=== PATIENT | female | born 1965 | race Caucasian/White ===

== ENCOUNTER 2020-03-05 16:33 | Outpatient (REF) | payer OTHER, SELFPAY ==
--- NOTE | 2020-03-05 | MM_ITS ---
EXAMINATION: MM SCREENING DIGITAL BREAST TOMOSYNTHESIS, BILATERAL CLINICAL INFORMATION: Screening. Asymptomatic. The lifetime risk of breast cancer based on the Tyrer-Cuzick Model is 7.5%. COMPARISON: Mammography: 09/03/2018 and multiple previous mammograms dated back to 03/02/2013 TECHNIQUE: Digital breast tomosynthesis is performed in both the craniocaudal and mediolateral oblique views along with computer-aided detection (CAD). Synthesized 2D images are generated from the tomosynthesis. FINDINGS: The breasts are heterogeneously dense, which may obscure small masses (ACR BI-RADS breast composition Category c). Multiple scattered punctate and round calcifications in the right breast, greater in the upper outer quadrant do not appear to be significantly changed compared to previous studies. Several scattered punctate and round left breast calcifications also do not appear to be significantly changed compared to previous studies. No suspicious masses, calcifications, architectural distortion or other abnormalities are seen in either breast. MM/MM tomosynthesis screening BI IMPRESSION: No mammographic evidence of malignancy. ASSESSMENT: BI-RADS 2: Benign RECOMMENDATION: Routine annual mammography screening. This patient's information was entered into a reminder system with a target due date for their next mammogram.
== END 2020-03-05 16:34 | disposition home or self-care (01) ==
LOC: HO.MAMMO 16:33
PROVIDERS: PCP Internal Medicine; Visit Provider Internal Medicine
DX: Z12.31 Encounter for screening mammogram for malignant neoplasm of breast (principal)
CPT/HCPCS: 77063; 77067

== ENCOUNTER 2022-07-16 07:56 | Outpatient (REF) | payer OTHER, SELFPAY ==
--- NOTE | ~2022-07-16 | MM_ITS ---
EXAMINATION: MM SCREENING DIGITAL BREAST TOMOSYNTHESIS, BILATERAL CLINICAL INFORMATION: Screening. Asymptomatic. The lifetime risk of breast cancer based on the Tyrer-Cuzick Model is 8%. COMPARISON: Mammography: 03/05/2020, 09/03/2018, 08/18/2017 TECHNIQUE: Digital breast tomosynthesis is performed in both the craniocaudal and mediolateral oblique views along with computer-aided detection (CAD). Synthesized 2D images are generated from the tomosynthesis. FINDINGS: The breasts are heterogeneously dense, which may obscure small masses (ACR BI-RADS breast composition Category c). There are no significant masses, abnormal calcifications, or other abnormalities. Parenchymal pattern is similar to prior studies. There is no developing density or architectural abnormality. The axilla and skin contours are unremarkable. No significant changes. MM/MM tomosynthesis screening BI IMPRESSION: No mammographic evidence of malignancy. ASSESSMENT: BI-RADS 1: Negative RECOMMENDATION: Routine annual mammography screening. This patient's information was entered into a reminder system with a target due date for their next mammogram.
== END 2022-07-16 07:57 | disposition home or self-care (01) ==
LOC: HO.MAMMO 07:56
PROVIDERS: PCP Internal Medicine; Visit Provider Obstetrics & Gynecology
DX: Z12.31 Encounter for screening mammogram for malignant neoplasm of breast (principal)
CPT/HCPCS: 77063; 77067

== ENCOUNTER 2023-07-22 07:52 | Outpatient (REF) | payer OTHER, SELFPAY ==
--- NOTE | ~2023-07-22 | MM_ITS ---
EXAMINATION: MM SCREENING DIGITAL BREAST TOMOSYNTHESIS, BILATERAL CLINICAL INFORMATION: Screening. Asymptomatic. COMPARISON: Mammography: This study is compared with prior exams dating back to 2018. TECHNIQUE: Digital breast tomosynthesis is performed in both the craniocaudal and mediolateral oblique views along with computer-aided detection (CAD). Synthesized 2D images are generated from the tomosynthesis. FINDINGS: There are scattered areas of fibroglandular density (ACR BI-RADS breast composition Category b). There are no significant masses, abnormal calcifications, or other abnormalities. There are grouped calcifications which are benign and unchanged in the lower inner quadrant of the right breast. MM/MM tomosynthesis screening BI IMPRESSION: No mammographic evidence of malignancy. ASSESSMENT: BI-RADS BI-RADS 2 - Benign Findings RECOMMENDATION: Routine annual mammography screening. 1 year F/U This examination should not preclude the clinical evaluation of a suspicious palpable abnormality. This patient's information was entered into a reminder system with a target due date for their next mammogram.
== END 2023-07-22 07:53 | disposition home or self-care (01) ==
LOC: HO.MAMMO 07:52
PROVIDERS: PCP Internal Medicine; Visit Provider Internal Medicine
DX: Z12.31 Encounter for screening mammogram for malignant neoplasm of breast (principal)
CPT/HCPCS: 77063; 77067

== ENCOUNTER → 2023-07-22 08:00 | Outpatient (BNV) | payer OTHER, SELFPAY | PROVIDERS: PCP Internal Medicine; Visit Provider Radiology Diagnostic Radiology | DX: Z12.31 Encounter for screening mammogram for malignant neoplasm of breast (principal) | CPT/HCPCS: 77063; 77067 ==

== ENCOUNTER 2024-07-26 09:08 | Outpatient (REF) | payer OTHER, SELFPAY ==
--- OUTSIDE RECORDS SUMMARY | 2024-07-26 10:06 | XMS_ITS | Patient Health Record ---
Author Organization [facility] Address [address] [place] [address] Care Team Providers Care Slab Lifting Engineer Name Role Phone Sergio Reynoso MD Primary Care Provider SILVIO Hong Unavailable [phone] Allergies Allergen (clinical drug ingredient) Drug/Non Drug Allergy documented on EMR Reaction Allergy Type Onset Date Status acetaminophen / oxycodone Percocet Hallucinations Drug Allergy Active Reason For Referral No Information Medications Medication SIG (Take, Route, Frequency, Duration) Notes Start Date End Date Status Probiotic - as directed Orally Active Social History Tobacco Use: Social History Observation Description Date Details (start date - stop date) Never Smoker NA - NA Tobacco Use/Smoking Question Answer Notes Are you a nonsmoker Alcohol Screen (Audit-C) Question Answer Notes Did you have a drink contain ing alcohol in the past year? Yes How often did you have a dri nk containing alcohol in the past year? Monthly or less (1 point) How many drinks did you have on a typical day when you were drinking in the past year? 1 or 2 drinks (0 point) How often did you have 6 or more drinks on one occasion in the past year? Never (0 point) Points 1 Interpretation Negative Sexual History Question Answer Notes Had sex in the past 12 months (vaginal, oral, or anal)? Yes with Men only Prevention strategies discussed: Other Tobacco use other than smoking: Question Answer Notes Are you an other tobacco user? No Problems Problem Type SNOMED Code ICD Code Onset Dates Problem Status W/U Status Risk Notes Problem Autoimmune thyroiditis (58437398) Autoimmune thyroiditis (E06.3) Active confirmed Problem Refractory migraine without aura (269294942) Migraine without aura, intractable, without status migrainosus (G43.019) Active confirmed Problem Family history of malignant neoplasm of gastrointestinal tract (296389502) Family history of malignant neoplasm of digestive organs (Z80.0) Active confirmed Plan Of Treatment Pending Test Test Name Order Date THIN PREP,HPV,JESUS IF HPV+ (>29YR)(DIAG) 06/16/2018 MM Digital Screening Mammogram 3D 2019 MM Digital Screening Mammogram 3D 2020 Medical (General) History Medical History History ICD Code Migraine without aura, intractable, with out status migrainosus G43.019 Autoimmune thyroiditis E06.3 Arthritis in right knee Exocrine pancreatic insufficiency K86.81 Surgical History Surgery Date(Month/Year) Right Knee Surgery x 3 Arthroscopic 1984 ,1990,1996 Rectal Tumor Removed 09/2011 Colonoscopy 2018 Hospitalization History Reason Date(Month/Year) 3 Vaginal Deliveries 1990,1992,1995 See Surgical Hx
--- OUTSIDE RECORDS SUMMARY | 2024-07-26 10:06 | XMS_ITS | Patient Health Record ---
Author Organization [facility] Address [address], [place] [id number] Care Team Providers Care Netezza Architect Name Role Phone Jeannie Oh Unavailable [phone] Allergies Allergen (clinical drug ingredient) Drug/Non Drug Allergy documented on EMR Reaction Allergy Type Onset Date Status Dust Mites Unknown Allergy Active Results Component Value Reference Range Notes THINPREP-TIS Reviewed date:03/21/2024 01:56:44 PM Interpretation:Normal pap Performing Lab: Notes/Report: 0 CLINICAL INFORMATION: None g iven LMP: NONE GIVEN PREV. PAP: NONE GIVEN PREV. BX: NONE GIVEN SOURCE: None given STATEMENT OF ADEQUACY: [facility] FACTORY FOR EVALUATION INTERPRETATION/RESULT: Cytology Results: Negative for intraepithelial lesion or malignancy. Atrophic pattern; predominantly parabasal cells COMMENT: This Pap test has been evaluated with computer assisted technology. TEST DRILLER: NATIVIDAD CHAVES(ASCP) CT screening location: [place] [address] COMMENT EXPLANATORY NOTE: The Pap is a screening test for cervical cancer. It is not a diagnostic test and is subject to false negative and false positive results. It is most reliable when a satisfactory sample, regularly obtained, is submitted with relevant clinical findings and history, and when the Pap result is evaluated along with historic and current clinical information. HPV mRNA E6/E7 REFLEX TO HPV 16, 18/45 Reviewed date:03/21/2024 01:56:37 PM Interpretation:HPV- Performing Lab: Notes/Report: 0 HPV mRNA E6/E7 Not Detected Not Detected Methodology: Time Study Analyst-Mediated Amplification This assay detects E6/E7 viral messenger RNA (mRNA) from 14 high-risk HPV types (16,18,31,33,35,39,45,51,52,56 ,58,59,66,68). Cervical sources are required for HPV testing. If a vaginal source from a patient who has had a total hysterectomy with removal of cervix was submitted, please contact the testing laboratory for alternative testing options. For additional information, please refer to http://education.[email or web address]/faq/ITL488k5 (This link if provided for information/ educational purposes only.) NO COLLECTION DATE RECEIVED. WE HAVE USED THE DATE THE SPECIMEN WAS RECEIVED BY THIS LABORATORY THE COLLECTION DATE. IF THIS IS INCORRECT, PLEASE CONTACT CLIENT SERVICES. PHONE NUMBER: Reason For Referral No Information Medications Medication SIG (Take, Route, Frequency, Duration) Notes Start Date End Date Status Biotin 5000 MCG 1 tablet Orally Once a day every other day Active Estradiol 0.1 MG/GM 0.5 gram, blueberry size amount, apply with finger vulva, vagina 2-3 times per week for 90 days 03/17/2024 Active Multivitamin - 1 tablet Orally Once a day Active Glucosamine Chond Cmp Advanced - as directed Orally Active Calcium 600-200 MG-UNIT 1 tablet with fo od Orally Twice a day 600mg 1x a day Active B12 5000 MCG as directed Sublingual spray 500mcg 1x a day Active Probiotic 250 MG as directed Orally Active Lipotropic Complex - as directed Orally Active Vitamin C 100 MG 1 tablet Orally Once a day Active Social History Tobacco Use: Social History Observation Description Date Details (start date - stop date) Never Smoker NA - NA Alcohol: Question Answer Notes How often did you have a dri nk containing alcohol in the past year? 2 to 4 times a month (2 points) Tobacco Use: Question Answer Notes Are you a: never smoker Problems Problem Type SNOMED Code ICD Code Onset Dates Problem Status W/U Status Risk Notes Problem Menopause (951463301) Menopausal and female climacteric states (N95.1) Active confirmed Vital Signs Blood pressure diastolic 82 mm Hg 03/17/2024 Height 68.5 in 03/17/2024 Blood pressure systolic 126 mm Hg 03/17/2024 Weight 160.6 lbs 03/17/2024 BMI 24.06 kg/m2 03/17/2024 Encounters Encounter Location Date Provider Diagnosis [address] [id number] 03/17/2024 Jaennie Oh Encounter for gynecological examination (general) (routine) without abnormal findings Z01.419 ; Encounter for screening for malignant neoplasm of cervix Z12.4 and Menopausal and female climacteric states N95.1 Assessments Encounter Date Diagnosis (ICD Code) Assessment Notes Treatment Notes Treatment Clinical Notes Section Notes 03/17/2024 Encounter for gynecological examination (general) (routine) without abnormal findings (ICD-10 - Z01.419) me 03/17/2024 Encounter for screening for malignant neoplasm of cervix (ICD-10 - Z12.4) Pap cotested me 03/17/2024 Menopausal and female climacteric states (ICD-10 - N95.1) 03/2024 mild GSM on exam, symptomatic urinary urgency/nocturi a, start vag E2 cream, gave dr Segundo soni, rtc 6M me 03/17/2024 Other Patient was offered and declined having accounting machine operator in the room Time was allowed for questions which were answered to the best of my ability, patient understands to contact office if she has further questions or concerns me Plan Of Treatment Next Appt Details Provider Name:Jeannie Oh, 09/14/2024 08:45:00 AM, [address] [place], [place], [id number], Insurance Providers Payer Name Payer Address Payer Phone Subscriber Number Group Number Insured Name Patient Relationship to Insured Coverage Start Date Coverage End Date [facility] [address] [address] [place] [address] [id number] Carl Sorensen Self - patient is the insured Medical (General) History Medical History History ICD Code andenoma dislocated right clavicle torn SI joint right knee issues mold , dogweed, and grass allergy exocrine pancreatic insufficiency Surgical History Surgery Date(Month/Year) right knee x 3 rectal mass resection
--- OUTSIDE RECORDS SUMMARY | 2024-07-26 10:06 | XMS_ITS | Patient Health Record ---
Author Organization [facility] Address [address] [place] [address] Care Team Providers Care Feller Hand Name Role Phone Sergio Reynoso MD Primary Care Provider Unavaila Gloria Kingsley Unavailable [phone] Allergies Allergen (clinical drug ingredient) Drug/Non Drug Allergy documented on EMR Reaction Allergy Type Onset Date Status cefaclor Cefaclor Unknown Drug Allergy Active Ceftin Unknown Drug Allergy Active gentamicin Gentamicin Sulfate Unknown Drug Allergy Active Keflex Unknown Drug Allergy Active morphine Morphine Unknown Drug Allergy Active Reason For Referral No Information Medications Medication SIG (Take, Route, Fr equency, Duration) Notes Start Date End Date Status Aspirin 325 MG 1 tablet Orally Once a day Active Biotin Active Calcium Active Multivitamin Orally Active Glucosamine Active Chondroitin Sulfate Active Topiramate Active Fish Oil Active Zomig 5 MG 1 tablet as needed o ne time Orally Once a day Active Vitamin D3 5000 UNIT Orally Active Problems Problem Type SNOMED Code ICD Code Onset Dates Problem Status W/U Status Risk Notes Problem Hallux valgus (032440342) Hallux Valgus (735.0) Active confirmed Problem Hammer toe (223843470) Hammer toe (735.4) Active confirmed Plan Of Treatment No Information Medical (General) History Medical History History ICD Code Anxiety Back,Hip,and Knee pain Arthritis Headaches Chicken pox Thyroid disorder Surgical History Surgery Date(Month/Year) Tumor removal Orthoscopic right knee 1984,1989,1993 3 pregnacies 1990,1992,1995
--- OUTSIDE RECORDS SUMMARY | 2024-07-26 10:06 | XMS_ITS ---
Author Organization [facility] Address [address], [place] [id number] Care Team Providers Care Director Of Home Care Hospice Name Role Phone Jeannie Oh Unavailable [phone] Allergies Allergen (clinical drug ingredient) Drug/Non Drug Allergy documented on EMR Reaction Allergy Type Onset Date Status Dust Mites Unknown Allergy Active Results Component Value Reference Range Notes HPV mRNA E6/E7 REFLEX TO HPV 16, 18/45 Reviewed date:03/21/2024 01:56:37 PM Interpretation:HPV- Performing Lab: Notes/Report: 0 HPV mRNA E6/E7 Not Detected Not Detected Methodology: 411 Directory Assistance Operator-Mediated Amplification This assay detects E6/E7 viral messenger RNA (mRNA) from 14 high-risk HPV types (16,18,31,33,35,39,45,51,52,56 ,58,59,66,68). Cervical sources are required for HPV testing. If a vaginal source from a patient who has had a total hysterectomy with removal of cervix was submitted, please contact the testing laboratory for alternative testing options. For additional information, please refer to http://education.[employer].com/faq/SIP920m2 (This link if provided for information/ educational purposes only.) NO COLLECTION DATE RECEIVED. WE HAVE USED THE DATE THE SPECIMEN WAS RECEIVED BY THIS LABORATORY THE COLLECTION DATE. IF THIS IS INCORRECT, PLEASE CONTACT CLIENT SERVICES. PHONE NUMBER: [email or web address] Reviewed date:03/21/2024 01:56:44 PM Interpretation:Normal pap Performing Lab: Notes/Report: 0 CLINICAL INFORMATION: None g iven LMP: NONE GIVEN PREV. PAP: NONE GIVEN PREV. BX: NONE GIVEN SOURCE: None given STATEMENT OF ADEQUACY: [facility] FACTORY FOR EVALUATION INTERPRETATION/RESULT: Cytology Results: Negative for intraepithelial lesion or malignancy. Atrophic pattern; predominantly parabasal cells COMMENT: This Pap test has been evaluated with computer assisted technology. YARDAGE ESTIMATOR: NATIVIDAD CHAVES(ASCP) CT screening location: [place] [address] COMMENT EXPLANATORY NOTE: The Pap is a screening test for cervical cancer. It is not a diagnostic test and is subject to false negative and false positive results. It is most reliable when a satisfactory sample, regularly obtained, is submitted with relevant clinical findings and history, and when the Pap result is evaluated along with historic and current clinical information. REASON FOR VISIT new annual Medications Medication SIG (Take, Route, Frequency, Duration) Notes Start Date End Date Status Biotin 5000 MCG 1 tablet Orally Once a day every other day Active Multivitamin - 1 tablet Orally Once a day Active Glucosamine Chond Cmp Advanced - as directed Orally Active Calcium 600-200 MG-UNIT 1 tablet with fo od Orally Twice a day 600mg 1x a day Active B12 5000 MCG as directed Sublingual spray 500mcg 1x a day Active Estradiol 0.1 MG/GM 0.5 gram, blueberry size amount, apply with finger vulva, vagina 2-3 times per week for 90 days 03/17/2024 Active Probiotic 250 MG as directed Orally [...] Status W/U Status Risk Notes Problem Menopause (648529113) Menopausal and female climacteric states (N95.1) Active confirmed Vital Signs Height 68.5 in 03/17/2024 Weight 160.6 lbs 03/17/2024 Blood pressure systolic 126 mm Hg 03/17/20 24 Blood pressure diastolic 82 mm Hg 024 BMI 24.06 kg/m2 03/17/2024 Encounters Encounter Location Date Provider Diagnosis [facility] [address], [place] [id number] 03/17/2024 Jeannie Oh Encounter for gynecological examination (general) (routine) [...] Other Patient was offered and declined having mangle tender cloth in the room Time was allowed for questions which were answered to the best of my ability, patient understands to contact office if she has further questions or concerns me Plan Of Treatment Medication Medication Name Sig Start Date Stop Date Notes Estradiol 0.1 MG/GM 0.5 gram, blueberry size amount, apply with finger vulva, vagina 2-3 times per week for 90 days 03/17/2024 Treatment Notes Assessment Notes Encounter for screening for malignant neoplasm of cervix Pap cotested Menopausal and female climacteric states 03/2024 mild GSM on exam, symptomatic urinary urgency/nocturia, start vag E2 cream, gave dr Raymond info, rtc 6M Other Patient was offered and declined having mangle tender cloth in the room Time was allowed for questions which were answered to the best of my ability, patient understands to contact office if she has further questions or concerns Next Appt Details Follow Up: 6M GSM/OAB f/u, R goznalez: Provider Name:Jeannie Oh, 09/14/2024 08:45:00 AM, [address] [place], [place], [phone], Progress Notes * ESTRELLA RANKIN:[birth year] (58 yo F)Acc No.[id number]:03/17/2024 Progress Notes Patient:?LAILA RANKIN Provider:?Jeannie Oh NP :1965???Age:58 Y???Sex:Female D ate:03/17/2024 Address:[address] [facility] Subjective: * Chief Complaints: * ???1. New annual. * HPI: ???RESPIRATORY TECH History:?58yr old F, new pt, here for annual . AE - 03/2024: sexually active only, rare etoh, caffeine daily; endorses vag dryness uses lube, urinary frequency, CAMERON, nocturia x 0-3;?denies vag bleeding, anorgasmia, itch/burn/discharge, UTI's - mild/mod GSM clitoral glans fused. * ROS:?Cardiology:?-?denies.?Respiratory:?-?denies.?Gastroenterology:?-?denies.?Urology:?-?denies.?Musculoskeletal:?-?denies.?Neurology:?-?denies.?Psychology:?-?denies.? * Medical History:?Andenoma, D islocated right clavicle, torn SI joint, Right knee issues, Mold , dogweed, and grass allergy, Exocrine pancreatic insufficiency. * Job Lithographer History:?Last mammogram: ?2022 , Pt states wnl.?Bone density:?2022.?Colonoscopy:?2021.?Sexually active?Yes, No pain or complaints.?Last pap smear?2021.?Last menstrual period?2013.? * OB History:?:?3.?Para :?3.? * Surgical History:?right knee x 3 , rectal mass resection . * Family History:?Mother: dece ased, diagnosed with Cancer of colon.?Father: , diagnosed with Cancer of colon.? History of colon cancer? No family history of ovarain or breast cancer both parents had both CRC and pancreatic cancer. * Social History:?Tobacco Use? Are you a:?never smoker.?Alcohol?How often did you have a drink containing alcohol in the past year??2 to 4 times a month (2 points).?Recreational drug use: No. * Medications:?Taking Probioti c 250 MG Capsule as directed Orally , Taking Lipotropic Complex - Capsule as directed Orally , Taking Vitamin C 100 MG Tablet 1 tablet Orally Once a day , Taking Multivitamin - Tablet 1 tablet Orally Once a day , Taking Glucosamine Chond Cmp Advanced - Tablet as directed Orally , Taking Calcium 600- 200 MG-UNIT Tablet 1 tablet with food Orally Twice a day , Notes to Pharmacist: 600mg 1x a day, Taking B12 5000 MCG Tablet Sublingual as directed Sublingual , Notes to Pharmacist: spray 500mcg 1x a day, Taking Biotin 5000 MCG Tablet 1 tablet Orally Once a day , Notes to Pharmacist: every other day * Allergies:?Dust Mites: Aller gy. Objective: * Vitals:?Height:68.5, Wt:160. 6, BP: 126/82, BMI:24.06. * Physical Examination:?GENERAL:?General Appearance:?pleasant, well nourished.?Lymph nodes?not enlarged.?BREASTS:?Appearance:?symmetrical.?Masses:?none.?Nipples:?normal.?Tenderness?no.?ABDOMEN:?Hernia:?absent.?Tenderness:?no.?Liver, Spleen:?not palpable.?Masses:?no.?GENITOURINARY FEMALE:?Vulva?mild thinning/pallor, labia minora abou 30% resorbed, clitoral glans fully fused.?bladder?prominent urethra.?Vagina:?mild thinning/derugination.?Vaginal Vault:?no discharge present.?Cervix/Cuff:?normal.?Uterus:?normal size, anteverted.?Adnexa:?no mass, non tender.?Anus/Perineum:?normal.?Pelvic Support Defects:?mild anterior w/valsalva.? Assessment: * Assessment: 1.?Encounter for gynecologic al examination (general) (routine) without abnormal findings - Z01.419 (Primary)???2.?Encounter for screening for malignant neoplasm of cervix - Z12.4???3.?Menopausal and female climacteric states - N95.1??? me Plan: * Treatment: 2.?Menopausal and female cli macteric states? Start Estradiol Cream, 0.1 MG/GM, 0.5 gram, blueberry size amount, apply with finger, vulva, vagina, 2-3 times per week, 90 days, 45 grams, Refills 4.?? Notes: 03/2024 mild GSM on exam, symptomatic urinary urgency/nocturia, start vag E2 cream, gave dr Segundo soni, rtc 6M?? 3.?Others? Notes: Patient was offered and declined having mangle tender cloth in the room Time was allowed for questions which were answered to the best of my ability, patient understands to contact office if she has further questions or concerns?? * Preventive Medicine:? ??Counseling:?Breast self-exam?The importance of monthly self-breast exam was discussed, The importance of monthly self-breast exam was discussed.? * Follow Up:?6M GSM/OAB f/u * * Sign off status: Completed true * Provider:?Jeannie Oh NP Date:?2023 Generated for Rayshawn jensen/Heather/Dejonitting on:?07/26/2024 10:06 AM EDT History and Physical Notes * HPI (History of Present Illness) Category Sub-Category Detail Notes Category Not es RESPIRATORY TECH History 58yr old F, new pt, here for annual . AE - 03/2024: sexually active only, rare etoh, caffeine daily; endorses vag dryness uses lube, urinary frequency, CAMERON, nocturia x 0-3; denies vag bleeding, anorgasmia, itch/burn/discharge, UTI's - mild/mod GSM clitoral glans fused Physical Examination Category Sub-Category Detail Notes Section Note s GENERAL General Appearance: pleasant, well nouris hed Lymph nodes not enlarged BREASTS Appearance: symmetrical Masses: none Nipples: normal Tenderness no ABDOMEN Hernia: absent Tenderness: no Liver, Spleen: not palpable Masses: no GENITOURINARY FEMALE Anus/Perineum: normal Pelvic Support Defects: mild anterior w/ valsalva Vaginal Vault: no discharge present Vagina: mild thinning/derugi nation Cervix/Cuff: normal Uterus: normal size, antever tasia Adnexa: no mass, non tender Vulva mild thinning/pallor , labia minora abou 30% resorbed, clitoral glans fully fused bladder prominent urethra
== END 2024-07-26 09:09 | disposition home or self-care (01) ==
LOC: HO.MAMMO 09:08
PROVIDERS: PCP Internal Medicine; Visit Provider Internal Medicine
DX: Z12.31 Encounter for screening mammogram for malignant neoplasm of breast (principal)
CPT/HCPCS: 77063; 77067

== ENCOUNTER → 2024-07-26 09:15 | Outpatient (BNV) | payer OTHER, SELFPAY | PROVIDERS: PCP Internal Medicine; Visit Provider Internal Medicine | DX: Z12.31 Encounter for screening mammogram for malignant neoplasm of breast (principal) | CPT/HCPCS: 77063; 77067 ==